=== PATIENT | male | born 1940 ===

== ENCOUNTER → 2022-04-11 06:10 | Outpatient (CLI) | payer OTHER | END | disposition home or self-care (01) | LOC: LAB 06:10 | PROVIDERS: ATTEND Orthopaedic Surgery | DX: D64.89 Other specified anemias (principal); E88.89 Other specified metabolic disorders; D68.8 Other specified coagulation defects; N39.0 Urinary tract infection, site not specified; A49.02 Methicillin resistant Staphylococcus aureus infection, unspecified site; I49.9 Cardiac arrhythmia, unspecified; I10 Essential (primary) hypertension; Z76.89 Persons encountering health services in other specified circumstances ==

== ENCOUNTER 2022-06-01 08:44 | Outpatient (CLI) | payer OTHER | END 2022-06-01 08:49 | disposition home or self-care (01) | LOC: RAD 08:44 | PROVIDERS: ATTEND Orthopaedic Surgery | DX: M25.511 Pain in right shoulder (principal); Z96.611 Presence of right artificial shoulder joint; Z98.1 Arthrodesis status ==